=== PATIENT | male | born 1955 | race Caucasian/White ===

== ENCOUNTER 2017-10-13 22:03 | Inpatient (IN) | payer BC ==
[~2017-10-13] VITALS: Ht 182.9 cm; Wt 111.2 kg
[~2017-10-13 22:03] MED LIST: CELEBREX200 MG PO; ENALAPRIL MALE2.5 MG PO; Ecotrin PO; Feosol PO; INSULIN PUMP MC; NOVOLOG PE100 UNITS/ SC; Omega III EPA + DHA PO; Osteo-Biflex,Flex-A- PO; SENOKOT S,PE1 TABLET PO; SIMVASTATIN20 MG PO; Vicodin,Norco 5/325 PO; Vitamin D PO; Zocor PO
[2017-10-14 06:48] VITALS: BP 154/71
[2017-10-14 07:14] LABS: POINT-OF-CARE METER ID UU14174212
[2017-10-14 09:34] LABS: POINT-OF-CARE METER ID UU13113675
[2017-10-14 10:04] LABS: HEMATOCRIT 43.2 % (38.0-50.0); MCH 27.9 PG (29.0-34.0); MCHC 33.1 G/DL (30.0-36.0); MCV 84.4 FL (86-99); MEAN PLAT.VOLUME 9.7 uM^3 (9.0-12.4); PLATELET COUNT 190 K/uL (156-360); RBC DIS.WIDTH-CV 12.4 % (11.8-14.6); RBC DIS.WIDTH-SD 37.9 % (39-53); RED BLOOD COUNT 5.12 M/uL (4.00-5.50); WHITE BLOOD COUNT 4.2 K/uL (4.1-10.2)
[2017-10-14 11:32] LABS: POINT-OF-CARE METER ID UU13113712
[2017-10-14 11:35] VITALS: BP 146/65
[2017-10-14 16:08] VITALS: BP 159/7
[2017-10-14 16:41] LABS: POINT-OF-CARE METER ID UU13113712
[2017-10-14 20:00] VITALS: BP 126/60
[2017-10-14 21:37] LABS: POINT-OF-CARE METER ID UU13113712
[2017-10-14 23:46] VITALS: BP 130/60
[2017-10-15 04:10] VITALS: BP 134/62
[2017-10-15 06:30] LABS: HEMATOCRIT 41.1 % (38.0-50.0)
[2017-10-15 07:00] LABS: ANION GAP 8 MEQ/L (2-14); CHLORIDE 98 MEQ/L (99-109); GFR ESTIMATE (CALCULATED) > 59 mL/min/; GLUCOSE 173 mg/dL (70-99); POTASSIUM 4.1 MEQ/L (3.7-5.4); SAMPLE HEMOLYSIS CHECK 0; SAMPLE ICTERIC CHECK 0; SAMPLE LIPEMIA CHECK 0; SODIUM 132 MEQ/L (136-147); UREA NITROGEN (BUN) 20 mg/dL (9-23)
[2017-10-15 07:44] LABS: POINT-OF-CARE METER ID UU13113712
[2017-10-15 08:09] VITALS: BP 124/60
[2017-10-15 11:45] LABS: POINT-OF-CARE METER ID UU13113712
[2017-10-15 12:15] VITALS: BP 130/60
[2017-10-15 15:44] VITALS: BP 133/62
[2017-10-15 16:25] LABS: POINT-OF-CARE METER ID UU13113712
[2017-10-15 19:50] VITALS: BP 147/66
[2017-10-15 21:52] LABS: POINT-OF-CARE METER ID UU13113712
[2017-10-16 00:18] VITALS: BP 135/65
[2017-10-16 04:10] VITALS: BP 136/67
[2017-10-16 05:46] LABS: HEMATOCRIT 41.4 % (38.0-50.0); MCV 85.2 FL (86-99)
[2017-10-16 07:45] LABS: POINT-OF-CARE METER ID UU13113712
[2017-10-16 08:07] VITALS: BP 143/63
[2017-10-16] MEDS ORDERED: CELECOXIB200 MG PO (08:30)
[2017-10-16] MEDS ORDERED: ENDOCET 5-3251 EACH PO (08:30)
[2017-10-16] MEDS ORDERED: LOVENOX40 MG/0.4 SC (08:30)
[2017-10-16] MEDS ORDERED: DOCUSATE SODIU100 MG PO (08:30)
[2017-10-16 12:20] LABS: POINT-OF-CARE METER ID UU13113712
[2017-10-16 12:32] VITALS: BP 143/59
== END 2017-10-16 14:10 | DRG 470 ==
LOC: ENRESERV 22:03 → 3WEST 10-14 05:34 → 2SOUTH 10-14 05:34 → 3WEST 10-14 10:31
PROVIDERS: Orthopaedic Surgery
PROC: 0SRD0J9 Replacement of Left Knee Joint with Synthetic Substitute, Cemented, Open Approach (ICD-10-PCS; principal; 2017-10-14)
DX: M17.12 Unilateral primary osteoarthritis, left knee (principal); E11.9 Type 2 diabetes mellitus without complications; E78.5 Hyperlipidemia, unspecified; G47.30 Sleep apnea, unspecified; Z96.651 Presence of right artificial knee joint
CPT/HCPCS: 73560; 80048; 82948; 85014; 85018; 85027; 94660; C1713; J0131; J0690; J1170; J1650; J1815; J2250; J2405; J3010; J7050